=== PATIENT | female | born 1965 | race Caucasian/White ===

== ENCOUNTER 2018-02-14 13:15 | Outpatient (CLI) | payer BC ==
[~2018-02-14 13:15] MED LIST: METHACHOLINE KIT (J7674) INH
[2018-02-14] MEDS ORDERED: METHACHOLINE KIT (J7674) INH (14:00)
[2018-02-21] MEDS ORDERED: METHACHOLINE KIT (J7674) INH (12:00)
== END 2018-02-21 ==
LOC: M CARPUL 13:15
DX: J41.1 Mucopurulent chronic bronchitis (principal)
CPT/HCPCS: J7674

== ENCOUNTER → 2019-02-24 | Outpatient (REF) | payer BC ==
[2019-02-24 18:24] LABS: FREE T4 0.68 NG/DL (0.76-1.46); IMMUNOGLOBULIN A 94.3 MG/DL (70-400); THYROID STIMULATING HORMONE 1.15 uIU/ML (0.358-3.740)
== END ==
LOC: M LAB REF 16:48
PROVIDERS: ATTEND Internal Medicine Pulmonary Disease
DX: J45.20 Mild intermittent asthma, uncomplicated (principal)

== ENCOUNTER → 2023-03-05 | Outpatient (CLI) | payer BC ==
[2023-03-05 21:52] LABS: LIPASE 67 U/L (12-53)
[2023-03-05 21:53] LABS: AMYLASE 67 U/L (30-118)
== END ==
LOC: M WUC 15:08
PROVIDERS: ATTEND Physician Assistant
DX: R10.13 Epigastric pain (principal); R11.0 Nausea